=== PATIENT | male | born 1940 | race Two or more races ===

== ENCOUNTER 2023-06-13 10:07 | Outpatient (CLI) | payer OTHER ==
[~2023-06-13 10:07] MED LIST: ACETAMINOPHEN-1 EAC1; APETIGEN ELIXI120 ML PO; ATENOLOL25 MG; CLOPIDOGREL BIS75 MG PO; INTEGRA PLUS C1 EACH PO; IOPHEN DM-100 MG/5 M PO; LAMICTAL25 M1; LEVAQUIN750 MG PO; LIPITOR20 MG PO; Megace PO; PHOSLO667 M1 PO; PRE PROTEIN 2030 ML PO; TAMS0.4C PO
== END 2023-06-13 10:13 | disposition home or self-care (01) ==
LOC: SONOGRAMA 10:07
PROVIDERS: ATTEND Internal Medicine
DX: R18.8 Other ascites (principal); N40.0 Benign prostatic hyperplasia without lower urinary tract symptoms; N18.30 Chronic kidney disease, stage 3 unspecified

== ENCOUNTER 2023-08-03 09:22 | Emergency (ER) | payer OTHER ==
[~2023-08-03] VITALS: Ht 170.2 cm; Wt 80.7 kg
[2023-08-03 10:59] LABS: HEMATOCRIT 43.7 % (39.0-48.0); MEAN CORPUSCULAR HEMOGLOBIN 29.9 pg (27.00-32.0); MEAN CORPUSCULAR HGB CONC 34.4 g/dl (32.0-36.0); RED BLOOD COUNT 5.02 M/uL (4.00-6.00); RED CELL DISTRIBUTION WIDTH 14.3 % (11.5-14.5)
[2023-08-03 11:13] LABS: CALCIUM 9.3 mg/dL (8.5-10.1); CREATININE SERUM 2.26 mg/dL (0.70-1.30); GFR 27.85; POTASSIUM 4.02 mEq/L (3.5-5.1)
[2023-08-03 11:18] LABS: PLATELET COUNT 116 K/uL (150-450)
[2023-08-03 11:23] LABS: URINE BLOOD LARGE; URINE LEUKOCYTE MODERATE; URINE NITRATE NEGATIVE
[2023-08-03 12:39] LABS: URINE APPEARANCE TURBID; URINE BILIRRUBIN LARGE (NEGATIVE); URINE COLOR RED; URINE GLUCOSE 100 MG/DL (NEGATIVE); URINE PROTEIN >=300 (NEGATIVE); URINE RBC LOADED /HPF
[2023-08-03 12:40] LABS: URINE BACTERIA MODERATE; URINE WBC 31-40 /hpf
== END 2023-08-03 13:19 | disposition home or self-care (01) ==
LOC: ER 09:22
PROVIDERS: General Practice
DX: R31.0 Gross hematuria (principal); N40.0 Benign prostatic hyperplasia without lower urinary tract symptoms; I11.9 Hypertensive heart disease without heart failure

== ENCOUNTER 2023-08-30 11:12 | Emergency (ER) | payer OTHER ==
[~2023-08-30] VITALS: Ht 172.7 cm; Wt 79.4 kg
[2023-08-30 14:33] LABS: URINE APPEARANCE Turbid; URINE BILIRRUBIN Small (NEGATIVE); URINE COLOR Red; URINE GLUCOSE Negative (NEGATIVE); URINE LEUKOCYTE Large; URINE NITRATE Positive; URINE UROBILINOGEN 0.2 E.U./dl
[2023-08-30 14:37] LABS: URINE BACTERIA 2069.7 uL (0.0-1933); URINE EPITHELIAL CELLS 5.1 uL (0.0-38.8); URINE WBC 905.4 uL (0.0-23.2)
[2023-08-30 14:47] LABS: URINE PROTEIN 100 (NEGATIVE)
[2023-08-30 14:48] LABS: URINE BLOOD LARGE
[2023-08-30 14:50] LABS: HEMATOCRIT 43.7 % (39.0-48.0); HEMOGLOBIN 14.9 g/dL (13-16.00); MEAN CELL VOLUME 86.3 fL (80.0-100.00); MEAN CORPUSCULAR HEMOGLOBIN 29.4 pg (27.00-32.0); MEAN CORPUSCULAR HGB CONC 34.1 g/dl (32.0-36.0); RED BLOOD COUNT 5.07 M/uL (4.00-6.00); RED CELL DISTRIBUTION WIDTH 14.2 % (11.5-14.5)
[2023-08-30 14:51] LABS: URINE RBC > 10558.9 uL (0.0-20.8)
[2023-08-30 14:52] LABS: PLATELET COUNT 125 K/uL (150-450)
[2023-08-30 15:22] LABS: INR 1.02; PARTIAL THROMBOPLASTIN TIME 30.4 SECONDS (22.0-34.0); PROTHROMBIN TIME 10.7 SECONDS (9.0-11.5)
[2023-08-30 15:23] LABS: ALBUMIN 3.9 gm/dL (3.4-5.0); BILIRUBIN TOTAL 0.7 mg/dL (0.3-1.2); CALCIUM 9.1 mg/dL (8.5-10.1); CREATININE SERUM 2.31 mg/dL (0.70-1.30); GFR 27.16; GLOBULINA 3.8 G/DL (2.4-3.5); POTASSIUM 4.64 mEq/L (3.5-5.1); TOTAL PROTEIN 7.7 gm/dL (6.4-8.2)
[2023-08-30 15:39] LABS: PROSTATIC SPECIFIC ANTIGEN 13.4 NG/ML (0.010-4.00)
[2023-08-30] MEDS ORDERED: CEFTRIAXONE SODIUM 1,000 MG VIAL IV ONE (16:45)
[2023-08-30] MEDS ORDERED: levoFLOXacin 500 MG TABLET PO ONE (18:00)
== END 2023-08-30 19:00 | disposition home or self-care (01) ==
LOC: ER 11:12
PROVIDERS: Emergency Medicine
DX: N39.0 Urinary tract infection, site not specified (principal); N41.0 Acute prostatitis; R31.9 Hematuria, unspecified; I10 Essential (primary) hypertension; N40.0 Benign prostatic hyperplasia without lower urinary tract symptoms
CPT/HCPCS: 36415; 74176; 96365; 99284; J0696

== ENCOUNTER 2024-02-25 11:44 | Inpatient (IN) | payer OTHER ==
[~2024-02-25] VITALS: Ht 152.4 cm; Wt 79.4 kg
[2024-02-25] MEDS ORDERED: SPIRONOLACTONE25 MG PO (11:52)
[2024-02-25] MEDS ORDERED: METOPROLOL SUCC50 MG PO (11:52)
[2024-02-25 13:32] LABS: HEMATOCRIT 44.3 % (39.0-48.0); HEMOGLOBIN 15.1 g/dL (13-16.00); MEAN CELL VOLUME 86.8 fL (80.0-100.00); MEAN CORPUSCULAR HEMOGLOBIN 29.5 pg (27.00-32.0); RED BLOOD COUNT 5.11 M/uL (4.00-6.00); RED CELL DISTRIBUTION WIDTH 15.3 % (11.5-14.5)
[2024-02-25 13:54] LABS: PLATELET COUNT 97 K/uL (150-450)
[2024-02-25 13:56] LABS: ALBUMIN 3.5 gm/dL (3.4-5.0); ALKALINE PHOSPHATASE 132 U/L (50-136); ALT/SGPT 21 U/L (12-78); ANION GAP 14 (10.0-20.0); AST/SGOT 57 U/L (15-37); BILIRUBIN TOTAL 0.37 mg/dL (0.3-1.2); BILIRUBIN,CONJUGATED < 0.10 mg/dL (0.0-0.2); BILIRUBIN,UNCONJUGATED 0.27 mg/dL (0.0-0.6); BLOOD UREA NITROGEN 37 mg/dL (7-18); BUN CREA RATIO 11 (7.0-25.0); CALCIUM 9.1 mg/dL (8.5-10.1); CARBON DIOXIDE 19 mEq/L (21-32); CHLORIDE 111 mmol/L (98-107); CREATININE SERUM 3.27 mg/dL (0.70-1.30); GFR 18.18; GLUCOSE FASTING 119 mg/dL (65-100); OSMOLALITY SERUM 287 MOSM/KG (275-295); POTASSIUM 5.07 mEq/L (3.5-5.1); SODIUM 139 mmol/L (136-145); TOTAL PROTEIN 7.7 gm/dL (6.4-8.2)
[2024-02-25 17:01] LABS: PH,URINE 5.5 (5.0-8.0); URINE APPEARANCE Clear; URINE BILIRRUBIN Negative (NEGATIVE); URINE BLOOD Small; URINE COLOR Yellow; URINE GLUCOSE Negative (NEGATIVE); URINE KETONE Negative (NEGATIVE); URINE LEUKOCYTE Negative; URINE NITRATE Negative; URINE UROBILINOGEN 0.2 E.U./dl
[2024-02-25 17:05] LABS: URINE BACTERIA 30.2 uL (0.0-1933); URINE EPITHELIAL CELLS 7.1 uL (0.0-38.8); URINE RBC 2.7 uL (0.0-20.8); URINE WBC 5.5 uL (0.0-23.2)
[2024-02-25 17:13] LABS: URINE CAST 1.22 uL (0.0-1.40); URINE PROTEIN 300 (NEGATIVE)
[2024-02-25] MEDS ORDERED: LevETIRAcetam 500 MG/5 ML VIAL IV ONE (17:30)
[2024-02-25] MEDS ORDERED: LORazepam 2 MG/ML VIAL IV ONE (17:30)
[2024-02-25] MEDS ORDERED: ATORVASTATIN CALCIUM 40 MG TABLET PO SCH (20:30)
[2024-02-25] MEDS ORDERED: ONDANSETRON HCL 4 MG in 0.9 % SODIUM CHLORIDE 50 ML IV PRN (20:30)
[2024-02-25] MEDS ORDERED: ACETAMINOPHEN 500 MG GEL..CAP PO PRN (20:30)
[2024-02-25 21:14] VITALS: BP 142/59; O2SAT 100
[2024-02-25 21:23] LABS: INR 1.08; PROTHROMBIN TIME 11.7 SECONDS (9.0-11.5)
[2024-02-25 21:26] LABS: ALT/SGPT 18 U/L (12-78); AST/SGOT 40 U/L (15-37); LDH 189 U/L (87-241); PHOSPHOKINASE CREATININE 175 U/L (39-308)
[2024-02-25 21:34] LABS: D DIMER 1.65 MG/L; PARTIAL THROMBOPLASTIN TIME 32.4 SECONDS (22.0-34.0)
[2024-02-25 21:43] VITALS: BP 188/70
[2024-02-26] VITALS (8 sets, daily range): BP systolic 134–182; BP diastolic 62–90; O2SAT 95–100
[2024-02-26 06:59] LABS: HEMATOCRIT 44.2 % (39.0-48.0); HEMOGLOBIN 15.1 g/dL (13-16.00); MEAN CELL VOLUME 87.9 fL (80.0-100.00); MEAN CORPUSCULAR HGB CONC 34.1 g/dl (32.0-36.0); RED BLOOD COUNT 5.03 M/uL (4.00-6.00); RED CELL DISTRIBUTION WIDTH 15.4 % (11.5-14.5)
[2024-02-26 07:10] LABS: ALBUMIN 3.3 gm/dL (3.4-5.0); BILIRUBIN TOTAL 0.43 mg/dL (0.3-1.2); CALCIUM 8.7 mg/dL (8.5-10.1); CREATININE SERUM 2.91 mg/dL (0.70-1.30); GFR 20.8; GLOBULINA 3.6 G/DL (2.4-3.5); POTASSIUM 5.15 mEq/L (3.5-5.1); TOTAL PROTEIN 6.9 gm/dL (6.4-8.2)
[2024-02-26 07:13] LABS: TSH 0.347 uIU/mL (0.358-3.74)
[2024-02-26 08:16] LABS: PLATELET COUNT 91 K/uL (150-450)
[2024-02-26] MEDS ORDERED: TAMSULOSIN HCL 0.4 MG CAP PO SCH (09:00)
[2024-02-26] MEDS ORDERED: LevETIRAcetam 500 MG/5 ML VIAL IV SCH (09:00)
[2024-02-26] MEDS ORDERED: ATORVASTATIN CALCIUM 40 MG TABLET PO SCH (09:00)
[2024-02-26] MEDS ORDERED: SPIRONOLACTONE 25 MG TABLET PO SCH (09:00)
[2024-02-26] MEDS ORDERED: PANTOPRAZOLE SODIUM 40 MG/VIAL VIAL IV SCH (09:00)
[2024-02-26 15:23] LABS: FERRITIN 135.4 NG/ML (26-388)
[2024-02-26 15:39] LABS: C-REACTIVE PROTEIN 6.86 MG/DL (0.00-0.29)
[2024-02-26] MEDS ORDERED: LevETIRAcetam 5 MG/1 ML REDILUIDO IV SCH (21:00)
[2024-02-27] VITALS (7 sets, daily range): BP systolic 143–182; BP diastolic 80–98; O2SAT 95–998
[2024-02-27] MEDS ORDERED: hydrALAZINE HCL 20 MG VIAL IV PRN (07:00)
[2024-02-27] MEDS ORDERED: AMLODIPINE BESYLATE 5 MG TABLET PO SCH (09:00)
[2024-02-27] MEDS ORDERED: CEFTRIAXONE SODIUM 2,000 MG VIAL IV SCH (12:00)
[2024-02-27] MEDS ORDERED: DIPHENHYDRAMINE HCL 50 MG/ML VIAL 1ML IV PRN (15:00)
[2024-02-28 07:30] VITALS: BP 162/85; O2SAT 98
[2024-02-28 07:34] LABS: HEMATOCRIT 47.4 % (39.0-48.0); HEMOGLOBIN 16.3 g/dL (13-16.00); MEAN CELL VOLUME 86.7 fL (80.0-100.00); MEAN CORPUSCULAR HEMOGLOBIN 29.8 pg (27.00-32.0); MEAN CORPUSCULAR HGB CONC 34.4 g/dl (32.0-36.0); RED BLOOD COUNT 5.47 M/uL (4.00-6.00); RED CELL DISTRIBUTION WIDTH 15.4 % (11.5-14.5)
[2024-02-28 07:41] LABS: ALBUMIN 3.5 gm/dL (3.4-5.0); BILIRUBIN TOTAL 0.59 mg/dL (0.3-1.2); CALCIUM 8.9 mg/dL (8.5-10.1); CREATININE SERUM 2.78 mg/dL (0.70-1.30); FERRITIN 188.7 NG/ML (26-388); GFR 21.93; GLOBULINA 4.2 G/DL (2.4-3.5); MAGNESIUM 1.8 mg/dL (1.8-2.4); PHOSPHOROUS 2.5 mg/dL (2.5-4.9); POTASSIUM 4.39 mEq/L (3.5-5.1); TOTAL PROTEIN 7.7 gm/dL (6.4-8.2)
[2024-02-28 07:43] LABS: C-REACTIVE PROTEIN 14.3 MG/DL (0.00-0.29)
[2024-02-28 07:44] LABS: FERRITIN 185.6 NG/ML (26-388)
[2024-02-28 07:54] LABS: C-REACTIVE PROTEIN 14.2 MG/DL (0.00-0.29)
[2024-02-28 09:32] LABS: PLATELET COUNT 114 K/uL (150-450)
[2024-02-28 12:03] VITALS: BP 138/76; O2SAT 98
[2024-02-28 15:09] VITALS: BP 165/82; O2SAT 98
[2024-02-28] MEDS ORDERED: LORazepam 2 MG/ML VIAL IV PRN (16:15)
[2024-02-28] MEDS ORDERED: CITRIC ACID/SODIUM CITRATE 30 ML BLIST.PACK PO SCH (17:00)
[2024-02-28 20:00] VITALS: BP 136/90; O2SAT 99
[2024-02-28 22:57] VITALS: BP 147/77; O2SAT 100
[2024-02-29] VITALS: BP 142/85; O2SAT 99
[2024-02-29 01:00] VITALS: BP 154/70; O2SAT 100
[2024-02-29 04:00] VITALS: BP 154/70; O2SAT 100
[2024-02-29 07:57] VITALS: BP 153/73; O2SAT 100
[2024-02-29 08:31] LABS: ALBUMIN 2.9 gm/dL (3.4-5.0); BILIRUBIN TOTAL 0.44 mg/dL (0.3-1.2); CALCIUM 8.7 mg/dL (8.5-10.1); CREATININE SERUM 2.59 mg/dL (0.70-1.30); GFR 23.8; GLOBULINA 3.9 G/DL (2.4-3.5); PHOSPHOROUS 2.8 mg/dL (2.5-4.9); POTASSIUM 4.95 mEq/L (3.5-5.1); TOTAL PROTEIN 6.8 gm/dL (6.4-8.2)
[2024-02-29 16:58] VITALS: BP 156/85; O2SAT 98
[2024-02-29 18:37] VITALS: O2SAT 87
[2024-03-01] VITALS (10 sets, daily range): BP systolic 144–168; BP diastolic 68–87; O2SAT 94–99
[2024-03-01 08:21] LABS: HEMATOCRIT 45.4 % (39.0-48.0); HEMOGLOBIN 15.5 g/dL (13-16.00); MEAN CELL VOLUME 85.9 fL (80.0-100.00); MEAN CORPUSCULAR HEMOGLOBIN 29.4 pg (27.00-32.0); MEAN CORPUSCULAR HGB CONC 34.2 g/dl (32.0-36.0); RED BLOOD COUNT 5.29 M/uL (4.00-6.00); RED CELL DISTRIBUTION WIDTH 15.5 % (11.5-14.5)
[2024-03-01 09:08] LABS: PLATELET COUNT 112 K/uL (150-450)
[2024-03-01 09:22] LABS: BILIRUBIN TOTAL 0.69 mg/dL (0.3-1.2); CALCIUM 8.7 mg/dL (8.5-10.1); CREATININE SERUM 2.84 mg/dL (0.70-1.30); GFR 21.4; POTASSIUM 4.45 mEq/L (3.5-5.1)
[2024-03-01 09:30] LABS: C-REACTIVE PROTEIN 19.7 MG/DL (0.00-0.29); FERRITIN 341.8 NG/ML (26-388)
[2024-03-02] VITALS (8 sets, daily range): BP systolic 120–168; BP diastolic 84–89; O2SAT 91–98
[2024-03-02] MEDS ORDERED: AMLODIPINE BESYLATE 10 MG TABLET PO SCH (09:00)
[2024-03-02] MEDS ORDERED: CODEINE PHOSPHATE/GUAIFENESIN 5 ML ML PO SCH (09:09)
[2024-03-02] MEDS ORDERED: FAMOTIDINE/PF 20 MG in 0.9 % SODIUM CHLORIDE 8 ML IV PUSH SCH (21:00)
[2024-03-02 22:08] LABS: ABG PH 7.408 (7.35-7.45); ABG pCO2 27.1 mmHg (35-45); BASE EXCESS -6.2 mmol/l; BICARBONATE 16.7 mmol/l (23-25); Tco2 17.5 mmol/l
[2024-03-02 22:15] LABS: ABG PO2 47.8 mmHg (80-100); allen test SATISFACTORY; o2 32 %; puncture site RADIAL RIGHT
[2024-03-02] MEDS ORDERED: FUROsemide 20 MG/2 ML VIAL IV ONE (22:45)
[2024-03-02] MEDS ORDERED: NALOXONE HCL 0.4 MG/ML AMPUL IV STA (23:43)
[2024-03-03 00:07] VITALS: BP 207/73; O2SAT 87
[2024-03-03 00:48] VITALS: O2SAT 89
[2024-03-03 00:51] VITALS: BP 144/58; O2SAT 92
[2024-03-03 03:44] LABS: ABG PO2 64.7 mmHg (80-100); ABG pCO2 23.3 mmHg (35-45); BASE EXCESS -5.9 mmol/l; BICARBONATE 15.8 mmol/l (23-25); SaO2 93.1 %
[2024-03-03 03:45] LABS: Tco2 16.6 mmol/l; allen test SATISFACTORY; o2 100 %; puncture site RADIAL RIGHT
[2024-03-03 05:53] VITALS: O2SAT 89
[2024-03-03 06:03] VITALS: BP 170/70; O2SAT 92
[2024-03-03 08:50] VITALS: BP 177/72; O2SAT 90
[2024-03-03] MEDS ORDERED: GUAIFENESIN 100 MG/5 ML BLIST.PACK PO SCH (09:00)
== END 2024-03-03 10:38 | disposition expired | DRG 100 ==
LOC: ER 11:46 → ICU-2 21:07 → ICU 02-26 04:22 → MEDJ 02-29 13:04
PROVIDERS: General Practice; Internal Medicine; Internal Medicine Infectious Disease; ADMIT Internal Medicine; ATTEND Internal Medicine
PROC: 8E0ZXY6 Isolation (ICD-10-PCS; principal; 2024-02-25)
PROC: B020ZZZ Computerized Tomography (CT Scan) of Brain (ICD-10-PCS; 2024-02-25)
PROC: B030ZZZ Magnetic Resonance Imaging (MRI) of Brain (ICD-10-PCS; 2024-02-25)
PROC: B246ZZZ Ultrasonography of Right and Left Heart (ICD-10-PCS; 2024-02-25)
PROC: B345ZZZ Ultrasonography of Bilateral Common Carotid Arteries (ICD-10-PCS; 2024-02-25)
PROC: B348ZZZ Ultrasonography of Bilateral Internal Carotid Arteries (ICD-10-PCS; 2024-02-25)
PROC: 4A12X4Z Monitoring of Cardiac Electrical Activity, External Approach (ICD-10-PCS; 2024-02-25)
PROC: 0T9B70Z Drainage of Bladder with Drainage Device, Via Natural or Artificial Opening (ICD-10-PCS; 2024-02-25)
DX: G40.89 Other seizures (principal); G93.41 Metabolic encephalopathy; U07.1 COVID-19; I5A Non-ischemic myocardial injury (non-traumatic); N17.8 Other acute kidney failure; E87.21 Acute metabolic acidosis; I67.89 Other cerebrovascular disease; I44.1 Atrioventricular block, second degree; K70.9 Alcoholic liver disease, unspecified; F10.21 Alcohol dependence, in remission; I12.9 Hypertensive chronic kidney disease with stage 1 through stage 4 chronic kidney disease, or unspecified chronic kidney disease; N18.32 Chronic kidney disease, stage 3b; G30.8 Other Alzheimer's disease; F02.80 Dementia in other diseases classified elsewhere, unspecified severity, without behavioral disturbance, psychotic disturbance, mood disturbance, and anxiety; F01.50 Vascular dementia, unspecified severity, without behavioral disturbance, psychotic disturbance, mood disturbance, and anxiety; G31.89 Other specified degenerative diseases of nervous system; S00.03XA Contusion of scalp, initial encounter; W06.XXXA Fall from bed, initial encounter; Y93.9 Activity, unspecified; Y92.003 Bedroom of unspecified non-institutional (private) residence as the place of occurrence of the external cause; Y99.9 Unspecified external cause status; Z66 Do not resuscitate
CPT/HCPCS: 70544